=== PATIENT | male | born 2000 | race Hispanic/Latino ===

== ENCOUNTER → 2020-04-14 | Day surgery (SDC) | payer OTHER ==
[~2020-04-14] MED LIST: AMLODIPINE BESYL5 MG PO; CEFAZOLIN SOD 1 GM/NS 50ML 50 ML IV ONE; CEPHALEXIN500 MG PO; FENTANYL CITRATE/PF 100MCG/2 ML INJ ONE; IBUPROFEN400 MG PO; LAMOTRIGINE100 MG PO; LEVETIRACETAM500 MG PO; LIDOCAINE HCL 2% LOCAL INJ 5 ML SDV VIAL INJ ONE; ONDANSETRON HCL INJ 2MG/ML 2ML 2 MG/ML VIAL ONE; PROPOFOL IV EMULSION 10 MG/ML 20 ML VIAL ONE; SEVOFLURANE INHAL SOLN 250 ML PEN BTL ONE
[2020-04-14 08:50] VITALS: BP 145/89
--- NOTE | 2020-04-14 08:52 | Operative Report ---
DATE OF PROCEDURE: 04/14/2020 SURGEON: Kenneth Quintero MD MEAT SOAKER: Tono Armas, certified PA. PREOPERATIVE DIAGNOSIS: Right 5th metacarpal neck fracture. POSTOPERATIVE DIAGNOSIS: Right 5th metacarpal neck fracture. PROCEDURE: Closed reduction and percutaneous pin fixation in right 5th metacarpal. INDICATIONS: The patient is a 20-year-old gentleman, who has a right 5th metacarpal neck fracture. The bone is 100% displaced. The findings and options have been discussed. We plan on a closed reduction and percutaneous pin fixation. The likelihood of anatomic reduction is remote. The patient states he understands and wishes to proceed. PROCEDURE IN DETAIL: The patient was brought to the operating room and placed under general anesthetic. His right upper extremity was prepped and draped in a sterile manner. A preoperative time-out was performed. A C-arm image intensifier was used to assist in performing a closed reduction of the right 5th metacarpal neck. Two 0.045 K-wires were placed into the metacarpal head and into the shaft of the 5th metacarpal. Acceptable reduction and positioning of the pins were noted on intraoperative x-rays. The pins were cut short and bent. A sterile bandage and an ulnar gutter splint were applied. The patient was extubated and transported to the recovery room in stable condition. Kenneth Quintero MD DR/[id number] /[id number]
== END | disposition home or self-care (01) ==
LOC: OR 05:57
PROVIDERS: ATTEND Specialist
DX: S62.336A Displaced fracture of neck of fifth metacarpal bone, right hand, initial encounter for closed fracture (principal); G40.909 Epilepsy, unspecified, not intractable, without status epilepticus; I10 Essential (primary) hypertension; F17.210 Nicotine dependence, cigarettes, uncomplicated; W22.09XA Striking against other stationary object, initial encounter; Z01.810 Encounter for preprocedural cardiovascular examination; Z01.812 Encounter for preprocedural laboratory examination; Z11.59 Encounter for screening for other viral diseases
CPT/HCPCS: 26608; 93005; C1713; J0690; J2001; J2405; J2704; J3010; U0002; 76000

== ENCOUNTER 2023-03-21 13:30 | Emergency (ER) | payer OTHER ==
[~2023-03-21] VITALS: Ht 177.8 cm; Wt 86.2 kg
[~2023-03-21 13:30] MED LIST changes: -CEFAZOLIN SOD 1 GM/NS 50ML 50 ML IV ONE; -FENTANYL CITRATE/PF 100MCG/2 ML INJ ONE; -LIDOCAINE HCL 2% LOCAL INJ 5 ML SDV VIAL INJ ONE; -ONDANSETRON HCL INJ 2MG/ML 2ML 2 MG/ML VIAL ONE; -PROPOFOL IV EMULSION 10 MG/ML 20 ML VIAL ONE; -SEVOFLURANE INHAL SOLN 250 ML PEN BTL ONE
[2023-03-21 13:40] VITALS: O2SAT 98
[2023-03-21] MEDS ORDERED: IBUPROFEN600 MG PO (14:07)
[2023-03-21] MEDS ORDERED: CLEOCIN HCL300 MG PO (14:07)
== END 2023-03-21 14:40 | disposition home or self-care (01) ==
LOC: FSED 13:35
DX: L04.2 Acute lymphadenitis of upper limb (principal); I10 Essential (primary) hypertension; G40.909 Epilepsy, unspecified, not intractable, without status epilepticus; F17.210 Nicotine dependence, cigarettes, uncomplicated
CPT/HCPCS: 99282